=== PATIENT | female | born 1945 | race Caucasian/White ===

== ENCOUNTER → 2017-08-26 | Day surgery (SDC) | payer OTHER, MEDICAID ==
[~2017-08-26] MED LIST: IOPAMIDOL (ISOVUE-300) 100 ML BTL ONE
== END | disposition home or self-care (01) ==
LOC: FIMAGING 07:31
PROVIDERS: ATTEND Physician Assistant Medical
PROC: 02HV33Z Insertion of Infusion Device into Superior Vena Cava, Percutaneous Approach (ICD-10-PCS; principal; 2017-08-26)
PROC: B518YZA Fluoroscopy of Superior Vena Cava using Other Contrast, Guidance (ICD-10-PCS; principal; 2017-08-26)
DX: G35 Multiple sclerosis (principal)
CPT/HCPCS: 36569; 77001; C1751; Q9967

== ENCOUNTER 2017-09-09 14:03 | Inpatient (IN) | payer OTHER, MEDICAID ==
[2017-09-09] MEDS ORDERED: ONDANSETRON 4 MG/2 ML VIAL IVP PRN (18:19)
[2017-09-09] MEDS ORDERED: LORazepam 2 MG/ML INJ IVP PRN (18:19)
[2017-09-09] MEDS ORDERED: NS 1,000 ML IV SCH (18:30)
[2017-09-09] MEDS ORDERED: D50W 25 GM/50 ML SYR IVP PRN (18:31)
[2017-09-09] MEDS ORDERED: HYDROmorphONE/DILAUDID 2 MG/ML INJ IVP PRN (18:33)
[2017-09-09] MEDS ORDERED: ALBUTEROL 3 ML DEYVIAL IH PRN (18:36)
[2017-09-09] MEDS ORDERED: ALBUTEROL 60 PUFFS/8 GM MDI IH PRN (18:36)
[2017-09-09] MEDS ORDERED: DIAZEPAM 5 MG/ML 1 ML SYR IVP PRN (18:37)
[2017-09-09] MEDS ORDERED: ALTEPLASE 2 MG VIAL IVP PRN (18:37)
--- NOTE | 2017-09-09 18:57 | GHP ---
[f rep st] HISTORY AND PHYSICAL DATE OF ADMISSION: 09/09/2017 HISTORY OF PRESENT ILLNESS: The patient is a pleasant 72-year-old female with a history of multiple sclerosis and a remote breast cancer, as well as sleep apnea, who presents to [facility] today with increasing symptoms of a multiple sclerosis flare. These typically include difficulty with speaking and difficulty swallowing, as well as generalized weakness. She states these are similar to her previous flare. She has had no fever, chills. No cough. No sputum, although she is having a difficult time handling her secretions. She has not had nausea, vomiting, or diarrhea. She has had no fever. At her baseline, she ambulates in her apartment with a walker, uses a scooter chair out in public. She works at the [employer]. When I speak with her, she has a difficult time speaking, but she is alert and coherent, cogent, and pleasant. She denies a lot of the symptoms I have already discussed. She is notably intolerant of MRIs in that she becomes markedly hypertensive. Apparently, she said she had blood pressures of 240 over the high 100s. I have discussed the case with Dr. Ash Sun. REVIEW OF SYSTEMS: Complete 10-point Review of Systems conducted, negative except as in the HPI. PAST MEDICAL HISTORY: Arthritis, breast cancer, cervical cancer, type 2 diabetes, reflux, history of hysterectomy, history of pancreatitis, depression. ALLERGIES: Codeine, hydrocodone, meperidine, methocarbamol, penicillins. HOME MEDICATIONS: Albuterol, amlodipine, Asmanex, atorvastatin, cholestyramine , clotrimazole, diclofenac gel, glipizide, ketoconazole, lactulose, lidocaine, meloxicam, mirabegron, montelukast, , omeprazole, ondansetron, oxybutynin, oxycodone, sumatriptan, theophylline, topiramate, tramadol, triamterene/ hydrochlorothiazide. SOCIAL HISTORY: No tobacco, no alcohol. Lives with a roommate in [place]. FAMILY HISTORY: Reviewed and unremarkable. PHYSICAL EXAMINATION: VITAL SIGNS: Temp 36.7, blood pressure 152/95, pulse 92 , breathing 16 times a minute, 95% on 2 L. GENERAL: No acute distress. HEENT : Sclerae anicteric. Oropharynx clear. Mucous membranes moist. NECK: Supple. No lymphadenopathy or JVD. LUNGS: Clear to auscultation bilaterally. HEART: S1, S2. ABDOMEN: Soft, nontender, nondistended. LOWER EXTREMITIES: Without edema. Calves nontender. NEUROLOGIC: Exam reveals patient is struggling to control her own secretions. Has had this stammering but coherent speech and has generalized weakness. She has a cough as well. LABS: From an outside hospital: Sodium 143, potassium 3, chloride 106, bicarb 22, BUN 28, creatinine 140, glucose 95. CBC: White count 11, hematocrit 36, platelets are 311,000. Her hematocrit is at her baseline. Chest x-ray from outside hospital is reviewed and is unremarkable. I discussed the case with Dr. Ash Sun. ASSESSMENT/PLAN: A 72-year-old female with multiple sclerosis flare, dysphagia. 1. Multiple sclerosis flare. We will give her a gram of Solu-Medrol today. We will hold on magnetic resonance imaging. 2. Dysphagia. She needs a speech evaluation done and we will make her nothing by mouth until then. We will give her some intravenous fluids. 3. Pain. The patient takes chronic pain medicine. She is nothing by mouth. I have written for a little bit of intravenous Dilaudid. 4. Diabetes. We will hold her orals and we will put her on the lispro sliding scale and follow her reaction to the pulse steroids. 5. Prophylaxis. Pharmacologic prophylaxis indicated. I have started her enoxaparin. DISPOSITION: Inpatient status. /[id number]/MODL MTDD
[2017-09-09] MEDS: methylPREDNISolone SOD SUCC 1 GM in D5W 100 ML IV SCH (20:05)
[2017-09-09] MEDS: KETOROLAC 15 MG/1 ML SDV IVP SCH (22:17)
[2017-09-09] MEDS: DICLOFENAC SODIUM 1% 100 GM GEL TP SCH (22:18)
[2017-09-10] MEDS: KETOROLAC 15 MG/1 ML SDV IVP SCH ×4 (04:32→23:21)
[2017-09-10] MEDS: DICLOFENAC SODIUM 1% 100 GM GEL TP SCH ×5 (04:45→21:01)
--- NOTE | 2017-09-10 08:29 | NEUROPROG ---
Assessment: Patient seen this morning. She is a long-time multiple sclerosis patient of our practice. I agree with the plan for daily IV Solu-Medrol. We can make determinations on discharge planning over the next several days has swallowing is assessed and safety determined. Hopefully she will be able to get her next infusion of Ocrevus as an outpatient next Wednesday. Objective: Vital Signs Temp Pulse Resp BP Pulse Ox 36.4 C 84 18 143/79 H 96 09/10/17 08:00 09/10/17 08:00 09/10/17 08:00 09/10/17 08:00 09/10/17 08:00 Laboratory Results 09/10/17 04:47 09/09/17 09/10/17 09/11/17 05:59 05:59 05:59 Intake Total 1003 Output Total 500 Balance 503 Allergies/Adverse Reactions: codeine Allergy (Verified 09/09/17 18:08) Hives hydrocodone [From Vicodin] Allergy (Verified 09/09/17 18:09) unarousable meperidine [From Demerol] Allergy (Verified 09/09/17 18:07) lethargy, stupor methocarbamol [From Robaxin] Allergy (Verified 09/09/17 18:10) Itching, Hives Penicillins Allergy (Verified 09/09/17 18:07) Swelling/neck,face,throat Sulfa (Sulfonamide Antibiotics) Allergy (Verified 09/09/17 18:10) Hives, swelling leratine Allergy (Uncoded 09/09/17 18:08)
[2017-09-10] MEDS ORDERED: ENOXAPARIN 40 MG/0.4 ML SYR SC SCH (09:00)
[2017-09-10] MEDS: INSULIN LISPRO 100 UNIT/ML SC SCH ×3 (09:08→18:14)
[2017-09-10] MEDS ORDERED: LIDOCAINE 1% 300 MG/30 ML SDV ONE (12:24)
--- NOTE | 2017-09-10 13:01 | HOSPPROG ---
Hospitalist Progress Note Assessment/Plan: 72y female with c/o weakness. First encounter, chart reviewed. #MS flare -cont IV steroids -needs PICC -appreciate neurology consult #Dysphagia -see notes -some improvement #Pain -better today #DM -cont support -SSI #KEITH -follow labs #Dispo -unclear -needs cont hospital care -iv steroids -dysphagia workup Subjective: Up in wheelchair. Feels well. No specific issues. Objective: Vital Signs Temp Pulse Resp BP Pulse Ox 36.5 C 83 16 141/87 H 96 09/10/17 12:00 09/10/17 12:00 09/10/17 12:00 09/10/17 12:00 09/10/17 12:00 Laboratory Results 09/10/17 04:47 09/09/17 09/10/17 09/11/17 05:59 05:59 05:59 Intake Total 1003 Output Total 500 Balance 503 - Physical Exam Constitutional: appears nourished, chronically ill appearing, obese Eyes: PERRL, anicteric sclera, EOMI Ears, Nose, Mouth, Throat: moist mucous membranes, hearing normal, ears appear normal Cardiovascular: regular rate and rhythym, No JVD, No bradycardia Respiratory: no respiratory distress, no rales or rhonchi, reduced air movement Gastrointestinal: normoactive bowel sounds, No tenderness, No ascites Skin: warm, normal color, No mottled Musculoskeletal: no joint effusions, pain with ROM, generalized weakness Neurologic: AAOx3, weakness Psychiatric: interacting appropriately, not anxious, not encephalopathic, thought process linear ICD10 Worksheet Patient Problems: Problems Problem Status Onset Multiple sclerosis Acute
--- NOTE | 2017-09-10 13:24 | PDRADPN ---
Radiology Procedure Note Date of Procedure: 09/10/17 Radiologist: Raymond Pearson Anesthesia: Local (Specify) Pre-op Diagnosis: abx access Post-op Diagnosis: same Indication: long term care pharmacist venous access Procedure: left UE PICC Finding(s): tip of LUE PICC at cavoatrial junction Inf/Abcess present in the surg proc area at time of surgery?: No EBL: Minimal Complications: none
[2017-09-10] MEDS: methylPREDNISolone SOD SUCC 1 GM in D5W 100 ML IV SCH (14:20)
--- NOTE | 2017-09-10 14:54 | ASMTCMCOM ---
CM Note CM Note Notes: Patient admitted for an MS flare. She is a long time patient of [facility]. They recommend a three day course of IV Solu Medrol with ongoing assessment of home safety and dysphagia. Patient lives with a roommate and works at the [employer]. She has a caregiver for 6 hrs/day. Currently, PT/OT recommend Inpatient Rehab, so an order has been placed. They will likely not be able to evaluate until Wednesday 09/13. Case Management will follow and assist with discharge needs. Date Signed: 09/10/2017 02:53 PM Electronically Signed By:Becca Loza RN
--- NOTE | 2017-09-10 15:22 | ASMTCMCOM ---
CM Note CM Note Notes: Spoke with patient about discharge planning. She says that when she has MS flares, she sometimes discharges home and sometimes to a SNF. She has gone to [facility] in the past. She feels that it's too soon to tell what she will need and would like to revisit the conversation in a few days. Her MDPOA is Asia Bray [phone], and she would like us to notify her when a discharge plan is made. Date Signed: 09/10/2017 03:21 PM Electronically Signed By:Becca Loza RN
--- NOTE | 2017-09-10 16:06 | PDMN ---
Medical Necessity Medical necessity: Pt meets IP criteria per MD; est los >2 mn for eval/tx of MS flare w/difficulty speaking/swallowing & generalized weakness; admit for further monitoring, IV Solu-Medrol, IVFs & therapies; hx diabetes, pancreatitis & breast cancer; per H&P & order 09/09/17
[2017-09-10] MEDS: hydrALAZINE 20 MG/ML VIAL IVP PRN (21:02)
[2017-09-10] MEDS: ENOXAPARIN 40 MG/0.4 ML SYR SC SCH (21:02)
[2017-09-10] MEDS ORDERED: LORazepam 0.5 MG TAB PO PRN (23:35)
[2017-09-10] MEDS ORDERED: THEOPHYLLINE ER/SR 300 MG TAB (THEO-DUR) PO SCH (23:45)
[2017-09-11] MEDS: MELATONIN 3 MG TAB PO PRN ×2 (00:01→20:08)
[2017-09-11] MEDS: BACLOFEN 10 MG TAB PO PRN (00:01)
[2017-09-11] MEDS: DICLOFENAC SODIUM 1% 100 GM GEL TP SCH ×4 (05:33→20:03)
[2017-09-11] MEDS: KETOROLAC 15 MG/1 ML SDV IVP SCH ×4 (05:33→23:07)
[2017-09-11] MEDS: hydrALAZINE 20 MG/ML VIAL IVP PRN (07:37)
[2017-09-11] MEDS: INSULIN LISPRO 100 UNIT/ML SC SCH ×3 (07:37→18:08)
[2017-09-11] MEDS: THEOPHYLLINE ORAL SOLUTION 80 MG/15 ML UDCUP TUBE SCH ×3 (07:39→18:08)
--- NOTE | 2017-09-11 08:50 | HOSPPROG ---
Hospitalist Progress Note Assessment/Plan: 72y female with c/o weakness and speech difficulties 2/2 MS exacerbation MS flare cont IV steroids, day 3 has picc appreciate neurology consult Dysphagia see notes now eating Pain better today DM: blood sugars ok on pulse steroids KEITH: cr at baseline proph: lmwh dispo: inpt rehab consult placed Subjective: case d/w neurology . speech improved from admit Objective: Vital Signs Temp Pulse Resp BP Pulse Ox 36.9 C 94 18 167/96 H 96 09/11/17 07:18 09/11/17 07:18 09/11/17 07:18 09/11/17 07:37 09/11/17 07:18 Laboratory Results 09/11/17 05:41 09/10/17 09/11/17 09/12/17 05:59 05:59 05:59 Intake Total 1003 640 Output Total 500 950 Balance 503 -310 - Physical Exam Constitutional: no apparent distress, appears nourished Eyes: PERRL, anicteric sclera Ears, Nose, Mouth, Throat: moist mucous membranes, hearing normal Cardiovascular: regular rate and rhythym, no murmur, rub, or gallop Respiratory: no respiratory distress, no rales or rhonchi Gastrointestinal: normoactive bowel sounds, soft, non-tender abdomen Genitourinary: no bladder fullness, No knight in urethra Skin: warm, normal color Musculoskeletal: No full muscle strength Neurologic: AAOx3, other (voice still slow and halting but improved from 09/09 afternoon) Psychiatric: interacting appropriately ICD10 Worksheet Patient Problems: Problems Problem Status Onset Multiple sclerosis Acute
[2017-09-11] MEDS: methylPREDNISolone SOD SUCC 1 GM in D5W 100 ML IV SCH (09:23)
[2017-09-11] MEDS: ENOXAPARIN 40 MG/0.4 ML SYR SC SCH ×2 (09:23→20:04)
[2017-09-11] MEDS: metFORMIN HCL 500 MG TAB PO SCH (10:45)
[2017-09-11] MEDS ORDERED: NON-FORMULARY NEW DRUG (Sumatriptan Succinate [Imitrex] 100 MG) PO PRN (10:49)
[2017-09-11] MEDS ORDERED: SUMAtriptan 50 MG TAB PO PRN (10:59)
[2017-09-11] MEDS: traMADol 50 MG TAB PO PRN (11:16)
[2017-09-11] MEDS: DULoxetine 60 MG CAP PO SCH (18:07)
[2017-09-11] MEDS: ASPARTAME PO SCH (20:05)
[2017-09-11] MEDS: CHOLESTYRAMINE PO SCH (20:05)
[2017-09-11] MEDS: TEMAZEPAM 15 MG CAP PO PRN (20:08)
[2017-09-12] MEDS: KETOROLAC 15 MG/1 ML SDV IVP SCH ×3 (04:48→17:08)
[2017-09-12] MEDS: DICLOFENAC SODIUM 1% 100 GM GEL TP SCH ×4 (04:51→20:40)
[2017-09-12] MEDS: metFORMIN HCL 500 MG TAB PO SCH (08:04)
[2017-09-12] MEDS: ENOXAPARIN 40 MG/0.4 ML SYR SC SCH ×2 (08:04→20:37)
[2017-09-12] MEDS: INSULIN LISPRO 100 UNIT/ML SC SCH ×3 (08:05→17:08)
[2017-09-12] MEDS: THEOPHYLLINE ORAL SOLUTION 80 MG/15 ML UDCUP TUBE SCH ×3 (08:05→17:08)
[2017-09-12] MEDS: DULoxetine 60 MG CAP PO SCH (08:05)
[2017-09-12] MEDS: traMADol 50 MG TAB PO PRN ×2 (08:05→20:37)
[2017-09-12] MEDS: CHOLESTYRAMINE PO SCH ×2 (08:06→19:17)
[2017-09-12] MEDS: ASPARTAME PO SCH ×2 (08:06→19:17)
[2017-09-12] MEDS: methylPREDNISolone SOD SUCC 1 GM in D5W 100 ML IV SCH (09:32)
--- NOTE | 2017-09-12 10:00 | HOSPPROG ---
Hospitalist Progress Note Assessment/Plan: 72y female with c/o weakness and speech difficulties 2/2 MS exacerbation MS flare cont IV steroids, day 4/ has picc appreciate neurology consult Dysphagia see notes now eating Pain better today DM: blood sugars ok on pulse steroids KEITH: cr at baseline proph: lmwh dispo: inpt rehab consult placed she is wishing to go home given rapid improvement- we will see AM 09/13 Subjective: voice continues to improve Objective: Vital Signs Temp Pulse Resp BP Pulse Ox 36.8 C 87 18 113/94 H 93 09/12/17 07:26 09/12/17 07:26 09/12/17 07:26 09/12/17 07:26 09/12/17 07:26 Laboratory Results 09/11/17 05:41 09/11/17 09/12/17 09/13/17 05:59 05:59 05:59 Intake Total 640 900 Output Total 950 800 Balance -310 100 - Physical Exam Constitutional: no apparent distress, appears nourished Eyes: PERRL, anicteric sclera Ears, Nose, Mouth, Throat: moist mucous membranes, hearing normal Cardiovascular: regular rate and rhythym, no murmur, rub, or gallop Respiratory: no respiratory distress, no rales or rhonchi Gastrointestinal: normoactive bowel sounds, soft, non-tender abdomen Genitourinary: no bladder fullness, No knight in urethra Skin: warm, normal color Musculoskeletal: full muscle strength Neurologic: AAOx3 ICD10 Worksheet Patient Problems: Problems Problem Status Onset Multiple sclerosis Acute
--- NOTE | 2017-09-12 10:49 | NEUROPROG ---
Assessment: Patient seen this morning. She is a long-time multiple sclerosis patient of our practice. I agree with the plan for daily IV Solu-Medrol. We can make determinations on discharge planning over the next several days has swallowing is assessed and safety determined. Hopefully she will be able to get her next infusion of Ocrevus as an outpatient next Wednesday. 09/12/17 Today's total unit time of 15 min. The patient had multiple sclerosis exacerbation and is doing significantly better after 4 days out of 5 of IV steroids. After tomorrow she should be able to be discharged home and continue outpatient follow-up with me as usual and continue eventual return to her treatment with the Ocrevus. Call for any questions Subjective: The patient reports feeling significantly better and is able to swallow now. She has completed 4/5 days of steroids. Objective: Vital Signs Temp Pulse Resp BP Pulse Ox 36.8 C 87 18 113/94 H 93 09/12/17 07:26 09/12/17 07:26 09/12/17 07:26 09/12/17 07:26 09/12/17 07:26 Laboratory Results 09/11/17 05:41 09/11/17 09/12/17 09/13/17 05:59 05:59 05:59 Intake Total 640 900 Output Total 950 800 Balance -310 100 Her speech is better and she generally looks better from a subjective standpoint with no other changes in her neurologic exam. Allergies/Adverse Reactions: codeine Allergy (Verified 09/09/17 18:08) Hives hydrocodone [From Vicodin] Allergy (Verified 09/09/17 18:09) unarousable meperidine [From Demerol] Allergy (Verified 09/09/17 18:07) lethargy, stupor methocarbamol [From Robaxin] Allergy (Verified 09/09/17 18:10) Itching, Hives Penicillins Allergy (Verified 09/09/17 18:07) Swelling/neck,face,throat Sulfa (Sulfonamide Antibiotics) Allergy (Verified 09/09/17 18:10) Hives, swelling leratine Allergy (Uncoded 09/09/17 18:08)
--- NOTE | 2017-09-12 16:30 | ASMTCMCOM ---
CM Note CM Note Notes: Spoke with MD & RN. Anticipate dc home tomorrow with [facility]. Alerted Carlie, at [facility]. CM will need to fax dc paperwork to Carlie at time of dc (# in previous note). Also updated pt's cousin Annie ([phone]). CM will need to arrange Medicaid [facility] stretcher for pt at time of dc & coordinate with Carlie on making sure Caregivers are available to meet pt once she is home. CM will follow. Date Signed: 09/12/2017 04:29 PM Electronically Signed By:Kim Soriano RN
--- NOTE | 2017-09-12 16:54 | ASMTCMCOM ---
CM Note CM Note Notes: Disregard previous CM note (09/12/17 8269). Charted on wrong pt. Date Signed: 09/12/2017 04:54 PM Electronically Signed By:Kim Soriano RN
--- NOTE | 2017-09-12 17:27 | ASMTCMCOM ---
CM Note CM Note Notes: Spoke with MD; anticipate dc home tomorrow. Met with pt; informed pt is current with [facility] for PT/OT/RN services. CM to contact [facility] Wednesday. Pt states she will have a ride home at time of dc. CM to follow. Date Signed: 09/12/2017 05:26 PM Electronically Signed By:Kim Soriano RN
[2017-09-12] MEDS: TEMAZEPAM 15 MG CAP PO PRN (20:37)
[2017-09-12] MEDS: MELATONIN 3 MG TAB PO PRN (20:37)
[2017-09-13] MEDS: KETOROLAC 15 MG/1 ML SDV IVP SCH ×2 (00:08→05:30)
[2017-09-13] MEDS: traMADol 50 MG TAB PO PRN (02:53)
[2017-09-13] MEDS: DICLOFENAC SODIUM 1% 100 GM GEL TP SCH (05:32)
[2017-09-13] MEDS: THEOPHYLLINE ORAL SOLUTION 80 MG/15 ML UDCUP TUBE SCH (08:01)
[2017-09-13] MEDS: DULoxetine 60 MG CAP PO SCH (08:04)
[2017-09-13] MEDS: metFORMIN HCL 500 MG TAB PO SCH (08:06)
[2017-09-13] MEDS: INSULIN LISPRO 100 UNIT/ML SC SCH (08:10)
[2017-09-13] MEDS: CHOLESTYRAMINE PO SCH (08:11)
[2017-09-13] MEDS: ENOXAPARIN 40 MG/0.4 ML SYR SC SCH (08:11)
[2017-09-13] MEDS: ASPARTAME PO SCH (08:11)
[2017-09-13] MEDS: BACLOFEN 10 MG TAB PO PRN (08:16)
--- NOTE | 2017-09-13 08:45 | HOSPPROG ---
Hospitalist Progress Note Assessment/Plan: 72y female with c/o weakness and speech difficulties 2/2 MS exacerbation MS flare cont IV steroids, day 09/30 has picc appreciate neurology consult Dysphagia see notes now eating Pain better today DM: blood sugars ok on pulse steroids KEITH: cr at baseline proph: lmwh dispo: home today w home care > 30 minutes on dc Subjective: considerably better and ready for dc Objective: Vital Signs Temp Pulse Resp BP Pulse Ox 36.6 C 91 16 124/89 H 95 09/12/17 22:07 09/12/17 22:07 09/12/17 22:07 09/12/17 22:07 09/12/17 22:07 Laboratory Results 09/11/17 05:41 09/12/17 09/13/17 09/14/17 05:59 05:59 05:59 Intake Total 900 400 Output Total 800 500 Balance 100 -100 - Physical Exam Constitutional: no apparent distress, appears nourished Eyes: PERRL, anicteric sclera Ears, Nose, Mouth, Throat: moist mucous membranes, hearing normal Cardiovascular: regular rate and rhythym, no murmur, rub, or gallop Respiratory: no respiratory distress, no rales or rhonchi Gastrointestinal: normoactive bowel sounds, soft, non-tender abdomen Genitourinary: no bladder fullness, No knight in urethra Skin: warm, normal color Musculoskeletal: full muscle strength Neurologic: AAOx3 ICD10 Worksheet Patient Problems: Problems Problem Status Onset Multiple sclerosis Acute
--- NOTE | 2017-09-13 08:47 | PDIAF ---
- Diagnosis Diagnosis: MS exacerbation Code Status: Full Code - Medication Management Discharge Medications: Medications to Continue on Transfer Albuterol [Proventil Inhaler HFA (*)] 1 - 2 puffs IH Q4H PRN 09/09/17 [Last Taken Unknown] Albuterol [Proventil Neb] 3 ml IH Q4 PRN 09/09/17 [Last Taken Unknown] Aspirin [Aspirin 81mg (*)] 81 mg PO DAILY 09/09/17 [Last Taken Unknown] Atorvastatin Calcium [Lipitor 20 mg (*)] 20 mg PO DAILY 09/09/17 [Last Taken Unknown] Baclofen [Baclofen 10 mg (*)] 10 mg PO TID 09/09/17 [Last Taken Unknown] Diclofenac Sodium 1% [Voltaren Gel (*)] 1 artemio TP QID 09/09/17 [Last Taken Unknown] Duloxetine HCl [Cymbalta] 60 mg PO DAILY 09/09/17 [Last Taken Unknown] Glycopyrrolate 1 mg PO DAILY 09/09/17 [Last Taken Unknown] Linaclotide [Linzess] 72 mcg PO DAILY 09/09/17 [Last Taken Unknown] Meloxicam 15 mg PO DAILY 09/09/17 [Last Taken Unknown] Mometasone 220Mcg Inhaler [Asmanex Inh (*)] 1 puffs IH TID 09/09/17 [Last Taken Unknown] Montelukast Sodium [Singulair 10 mg (*)] 10 mg PO DAILY 09/09/17 [Last Taken Unknown] Omeprazole 40 mg PO DAILY 09/09/17 [Last Taken Unknown] Theophylline ER/Sr [Sohail-Dur 300 MG (*)] 300 mg PO BID 09/09/17 [Last Taken Unknown] Triamterene/Hctz 37.5/25 [Dyazide 37.5/25 (*)] 1 each PO DAILY 09/09/17 [Last Taken Unknown] traMADol [Ultram 50 mg (*)] 50 - 100 mg PO Q4 PRN 09/09/17 [Last Taken Unknown] Cholestyramine/Aspartame [Prevalite Packet] 4 gm PO BID 09/10/17 [Last Taken Unknown] Clindamycin 600 mg PO ONCE PRN 09/10/17 [Last Taken Unknown] Melatonin [Melatonin 3 MG (*)] 6 mg PO HS 09/10/17 [Last Taken Unknown] Mirabegron [Myrbetriq] 50 mg PO DAILY 09/10/17 [Last Taken Unknown] Ondansetron Odt [Zofran Odt 4 mg (*)] 4 mg PO DAILY 09/10/17 [Last Taken Unknown ] Promethazine HCl [Phenadoz] 25 mg RC HS 09/10/17 [Last Taken Unknown] SUMAtriptan [Imitrex Sc Injection] 6 mg SQ ONCE PRN 09/10/17 [Last Taken Unknown ] Sumatriptan Succinate [Imitrex] 100 mg PO ONCE PRN 09/10/17 [Last Taken Unknown] metFORMIN HCL [Glucophage 500 mg (*)] 1,000 mg PO DAILY 09/10/17 [Last Taken Unknown] Discharge Medications: Refer to the Discharge Home Medication list for PRN reason. - Orders Services needed: Home Care, Physical Therapy, Occupational Therapy Home Care Face to Face: I certify that this patient was under my care and that I had the required [id number] encounter meeting the encounter requirements on the discharge day. My findings support the fact that the patient is homebound as defined in Home Care Face to Face Continued: [facility] Chapter 7 Medicare Benefits Manual 30.1.1 , The condition of the patient is such that there exists a normal inability to leave home and consequently, leaving home would require a considerable and taxing effort. Diet Texture: Dysphagia 2 - Mechanically Altered - Chopped, Ground, Thin Liquids , Meds Crushed in Puree - Follow Up Care Current Providers and Referrals: Patient,NotPresent [Primary Care Provider] -
[2017-09-13 08:59] VITALS: BP 143/77
[2017-09-13] MEDS: methylPREDNISolone SOD SUCC 1 GM in D5W 100 ML IV SCH (09:09)
--- NOTE | 2017-09-13 09:31 | GDS ---
[f rep st] DISCHARGE SUMMARY DISCHARGE DIAGNOSES: 1. Multiple sclerosis exacerbation. 2. Diabetes. 3. Dysphagia, now resolved. 4. History of breast cancer. 5. Type 2 diabetes. 6. History of hysterectomy. Please see admission history and physical. The patient presented with a multiple sclerosis flare, ch aracterized by dysphagia and generalized weakness. The patient received pulse steroids, Solu-Medrol a gram a day. She was seen by a neurologist, Dr. Sun. She had rather remarkable improvement o nasrin the 5 days. Physical Therapy was initially recommending inpatient rehab, but she was transitione d to being appropriate for home with home care, with which the patient concurs. She is discharged home. Medications unchanged. /[id number]/MODL
--- NOTE | 2017-09-13 10:01 | ASMTCMCOM ---
CM Note CM Note Notes: Dc order received. Spoke with MD & RN. Spoke with Monica ([phone]) at [facility]; dc paperwork faxed; confirmed received. Pt updated. Confirmed pt has a ride home. No other needs at this time. Date Signed: 09/13/2017 10:00 AM Electronically Signed By:Kim Soriano RN
--- NOTE | 2017-09-13 10:02 | ASDISCHSUM ---
Discharge Information Plan Status:Home with Home Health Medically Cleared to Leave:09/13/2017 Discharge Date:09/13/2017 CM D/C Disposition:Home Health Service ADT D/C Disposition: Projected Discharge Date:09/13/2017 11:00 AM Transportation at D/C:Family Discharge Delay Reason: Follow-Up Date:09/13/2017 11:00 AM Discharge Slot: Final Diagnosis: Placement Information Referral Type:*Home Health Care Services Referral ID:[id number] Provider Name:[facility] Address 1:[address] Address 2: City:[place] Selection Factors: State:[place] Patient Contact Information Contact Name:LIGIA Relationship:Sister Address: Work Phone: City: [place] [facility] Phone: [facility] Code: Email: Financial Information Financial Class:Medicare Primary Plan Desc:MEDICARE INPATIENT Primary Plan Number:[id number] Secondary Plan Desc:[place] Secondary Plan Number:[id number] Assessment Information [facility] CM Progress Note CM Note CM Note Notes: Patient admitted for an MS flare. She is a long time patient of [facility]. They recommend a three day course of IV Solu Medrol with ongoing assessment of home safety and dysphagia. Patient lives with a roommate and works at the [employer]. She has a caregiver for 6 hrs/day. Currently, PT/OT recommend Inpatient Rehab, so an order has been placed. They will likely not be able to evaluate until Wednesday 09/13. Case Management will follow and assist with discharge needs. Date Signed: 09/10/2017 02:53 PM Electronically Signed By:Becca Loza RN [facility] CM Progress Note CM Note CM Note Notes: Spoke with patient about discharge planning. She says that when she has MS flares, she sometimes discharges home and sometimes to a SNF. She has gone to [facility] in the past. She feels that it's too soon to tell what she will need and would like to revisit the conversation in a few days. Her MDPOA is Asia Bray [phone], and she would like us to notify her when a discharge plan is made. Date Signed: 09/10/2017 03:21 PM Electronically Signed By:Becca Loza RN [facility] Progress Note CM Note CM Note Notes: Spoke with MD & RN. Anticipate dc home tomorrow with [facility]. Alerted Carlie, at [facility]. CM will need to fax dc paperwork to Carlie at time of dc (# in previous note). Also updated pt's cousin Annie ([phone]). CM will need to arrange Medicaid [facility] stretcher for pt at time of dc & coordinate with Carlie on making sure Caregivers are available to meet pt once she is home. CM will follow. Date Signed: 09/12/2017 04:29 PM Electronically Signed By:Kim Soriano RN [facility] Progress Note CM Note CM Note Notes: Disregard previous CM note (09/12/17 9114). Charted on wrong pt. Date Signed: 09/12/2017 04:54 PM Electronically Signed By:Kim Soriano RN [facility] Progress Note CM Note CM Note Notes: Spoke with MD; anticipate dc home tomorrow. Met with pt; informed pt is current with [facility] for PT/OT/RN services. CM to contact [facility] Wednesday. Pt states she will have a ride home at time of dc. CM to follow. Date Signed: 09/12/2017 05:26 PM Electronically Signed By:Kim Soriano RN [facility] CM Progress Note CM Note CM Note Notes: Dc order received. Spoke with & RN. Spoke with Monica ([phone]) at [facility]; dc paperwork faxed; confirmed received. Pt updated. Confirmed pt has a ride home. No other needs at this time. Date Signed: 09/13/2017 10:00 AM Electronically Signed By:Kim Soriano RN Intervention Information
--- NOTE | 2017-09-16 09:38 | PQFORM ---
PHYSICIAN QUERY FORM Needs Your Response This query form is being sent to you to assure this patient record is coded properly. Please respond to the question below: IP/MOSAIC TECHNICIAN QUESTION: Dr Soriano The medical record documents a BUN= 30 ; a CR of 1.4 risk factors of DM2 and Dysphagia along with treatment of IV NS,. AKF was mentioned in the Progress Notes but was not documented in the Discharge Summary. Did the this patient have __X_ Acute Kidney Failure ___ Chronic Kidney Disease ___ Other (Please Specify ) ___ Unable to Determine Thank You Brigida JORDAN Senior Business Intelligence Analyst INSTRUCTIONS FOR RESPONSE: Answer question by clicking on the "Edit Document" button. Move cursor to area below the stars. When complete, hit "Save." Click on the "Sign" button, then click "Sign" again. Type in your PIN and hit "Enter." MTDD
== END 2017-09-13 10:44 | disposition home or self-care (01) | DRG 59 ==
LOC: F3E 16:43 → OBSVTOIN 16:43
PROVIDERS: ADMIT Internal Medicine; ATTEND Internal Medicine
PROC: 02HV33Z Insertion of Infusion Device into Superior Vena Cava, Percutaneous Approach (ICD-10-PCS; principal; 2017-09-10)
DX: G35 Multiple sclerosis (principal); N17.9 Acute kidney failure, unspecified; E11.9 Type 2 diabetes mellitus without complications; R13.10 Dysphagia, unspecified; G47.30 Sleep apnea, unspecified; Z85.41 Personal history of malignant neoplasm of cervix uteri; Z85.3 Personal history of malignant neoplasm of breast
CPT/HCPCS: 92526-GN; 92610-GN; 97110-GP; 97116-GP; 97162-GP; 97166-GO; 97530-GP; 97535-GO; C1751; G8978-GP-CK; G8979-GP-CJ; G8987-GO-CK; G8988-GO-CI; G8989-GO-CI; G8996-GN-CK; G8997-GN-CH; J0360; J1650; J1815; J1885; J2930

== ENCOUNTER 2018-03-16 11:23 | Outpatient (CLI) | payer OTHER, MEDICAID ==
[2018-03-16 12:19] LABS: PLATELET COUNT 262 10^3/uL (150-400)
[2018-03-16] MEDS ORDERED: PROPOFOL/EMULSION 500 MG/50 ML BOTTLE IV ONE (13:39)
[2018-03-16] MEDS ORDERED: fentaNYL 100 MCG/2 ML INJ ONE (13:39)
[2018-03-16] MEDS ORDERED: MIDAZOLAM 2 MG/2 ML VIAL ONE (13:39)
[2018-03-16] MEDS ORDERED: PROPOFOL 200 MG/20 ML VIAL ONE (13:39)
[2018-03-16] MEDS ORDERED: GADOBUTROL 10 ML VIAL IVP ONE (14:07)
--- NOTE | 2018-03-16 14:08 | PDANEPAE ---
ANE History of Present Illness Brain MRI looking for new MS lesions due to new deficits ANE Past Medical History - Cardiovascular History Hx Hypertension: No Hx Arrhythmias: No Hx Chest Pain: No Hx Coronary Artery / Peripheral Vascular Disease: No Hx CHF / Valvular Disease: No Hx Palpitations: No - Pulmonary History Hx COPD: No Hx Asthma/Reactive Airway Disease: No Hx Recent Upper Respiratory Infection: Yes Hx Oxygen in Use at Home: Yes Hx Sleep Apnea: Yes Sleep Apnea Screening Result - Last Documented: Positive Pulmonary History Comment: Hx asthma. O2 @ night -daytime only if levels drop - Neurologic History Hx Cerebrovascular Accident: No Hx Seizures: No Hx Dementia: No Neurologic History Comment: TIA x2 (06/2017 & 10/2017) - Endocrine History Hx Diabetes: Yes - Renal History Hx Renal Disorders: No - Liver History Hx Hepatic Disorders: No - Neurological & Psychiatric Hx Hx Neurological and Psychiatric Disorders: Yes Neurological / Psychiatric History Comment: MS - Cancer History Hx Cancer: Yes Cancer History Comment: uterine CA -1990. breast CA x2 (2-3 yrs ago) - Congenital Disorder History Hx Congenital Disorders: Yes Congenital History Comment: MS - GI History GERD: mild Hx Gastrointestinal Disorders: Yes Gastrointestinal History Comment: GERD - Other Health History Other Health History: cataracts removed 2016 - Chronic Pain History Chronic Pain: Yes - Surgical History Prior Surgeries: MYKEL, left knee, appy, vikram ANE Review of Systems Review of Systems: - Exercise capacity METS (RN): 1 METS ANE Patient History - Allergies Allergies/Adverse Reactions: codeine Allergy (Verified 09/09/17 18:08) Hives hydrocodone [From Vicodin] Allergy (Verified 09/09/17 18:09) unarousable meperidine [From Demerol] Allergy (Verified 09/09/17 18:07) lethargy, stupor methocarbamol [From Robaxin] Allergy (Verified 09/09/17 18:10) Itching, Hives Penicillins Allergy (Verified 09/09/17 18:07) Swelling/neck,face,throat Sulfa (Sulfonamide Antibiotics) Allergy (Verified 09/09/17 18:10) Hives, swelling leratine Allergy (Uncoded 09/09/17 18:08) - Home Medications Home Medications: Albuterol [Proventil Inhaler HFA (*)] 1 - 2 puffs IH Q4H PRN 09/09/17 [Last Taken Unknown] Albuterol [Proventil Neb] 3 ml IH Q4 PRN 09/09/17 [Last Taken Unknown] Aspirin [Aspirin 81mg (*)] 81 mg PO DAILY 09/09/17 [Last Taken 03/16/18] Atorvastatin Calcium [Lipitor 20 mg (*)] 20 mg PO DAILY 09/09/17 [Last Taken ] Baclofen [Baclofen 10 mg (*)] 10 mg PO TID 09/09/17 [Last Taken 03/16/18] Diclofenac Sodium 1% [Voltaren Gel (*)] 1 artemio TP QID 09/09/17 [Last Taken ] Duloxetine HCl [Cymbalta] 60 mg PO DAILY 09/09/17 [Last Taken 03/16/18] Glycopyrrolate 1 mg PO DAILY 09/09/17 [Last Taken 03/16/18] Linaclotide [Linzess] 72 mcg PO DAILY 09/09/17 [Last Taken 03/16/18] Meloxicam 15 mg PO DAILY 09/09/17 [Last Taken 03/16/18 07:30] Mometasone 220Mcg Inhaler [Asmanex Inh (*)] 1 puffs IH TID 09/09/17 [Last Taken 03/16/18 07:30] Montelukast Sodium [Singulair 10 mg (*)] 10 mg PO DAILY 09/09/17 [Last Taken 07:30] Omeprazole 40 mg PO DAILY 09/09/17 [Last Taken 03/16/18 07:30] Theophylline ER/Sr [Sohail-Dur 300 MG (*)] 300 mg PO BID 09/09/17 [Last Taken 07:30] Triamterene/Hctz 37.5/25 [Dyazide 37.5/25 (*)] 1 each PO DAILY 09/09/17 [Last Taken 03/16/18 07:30] traMADol [Ultram 50 mg (*)] 50 - 100 mg PO Q4 PRN 09/09/17 [Last Taken 03/16/18 07:30 100 mg] Cholestyramine/Aspartame [Prevalite Packet] 4 gm PO BID 09/10/17 [Last Taken ] Melatonin [Melatonin 3 MG (*)] 6 mg PO HS 09/10/17 [Last Taken 03/15/18 21:00] Mirabegron [Myrbetriq] 50 mg PO DAILY 09/10/17 [Last Taken 03/16/18 07:30] Ondansetron Odt [Zofran Odt 4 mg (*)] 4 mg PO DAILY 09/10/17 [Last Taken ] Promethazine HCl [Phenadoz] 25 mg RC HS 09/10/17 [Last Taken 03/16/18 07:30] SUMAtriptan [Imitrex Sc Injection] 6 mg SQ ONCE PRN 09/10/17 [Last Taken ] Sumatriptan Succinate [Imitrex] 100 mg PO ONCE PRN 09/10/17 [Last Taken 03/10/18 ] - Smoking Hx Smoking Status: Former smoker ANE Labs/Vital Signs - Labs Result Diagrams: 03/16/18 12:13 03/16/18 12:13 - Vital Signs Blood Pressure: 129/68 Heart Rate: 82 Respiratory Rate: 16 O2 Sat (%): 96 Height: 162.56 cm Weight: 114.305 kg ANE Physical Exam - Airway Neck exam: short neck Mallampati Score: Class 3 Mouth exam: normal dental/mouth exam - Pulmonary Pulmonary: no respiratory distress - Cardiovascular Cardiovascular: regular rate and rhythym - ASA Status ASA Status: III ANE Anesthesia Plan Anesthesia Plan: GA w LMA
[2018-03-16] MEDS ORDERED: ALBUTEROL 3 ML DEYVIAL IH PRN (15:30)
[2018-03-16] MEDS ORDERED: ONDANSETRON 4 MG/2 ML VIAL IVP PRN (15:30)
[2018-03-16] MEDS ORDERED: HYDROCODONE/APAP 5/325 TAB PO PRN (15:30)
[2018-03-16] MEDS ORDERED: NALOXONE HCL 0.4 MG/ML INJ IVP PRN (15:30)
[2018-03-16] MEDS ORDERED: MEPERIDINE 25 MG/0.5 ML AMP IVP PRN (15:30)
--- NOTE | 2018-03-16 15:30 | POSTANESTH ---
Post Anesthetic Evaluation Cardiovascular Status: Normal, Stable, Similar to Pre-Op Cond Respiratory Status: Normal, Stable Level of Consciousness/Mental Status: Can Participate in Eval, Alert and Oriented Pain Control: Adequate, Prn Tx Ordered Nausea/Vomiting Control: Adequate, Prn Tx Ordered
[2018-03-16 15:51] VITALS: BP 150/81
== END 2018-03-16 16:05 | disposition home or self-care (01) ==
LOC: FIMAGING 11:23
PROVIDERS: ATTEND Psychiatry & Neurology Neurology
DX: G35 Multiple sclerosis (principal); R47.81 Slurred speech; H53.9 Unspecified visual disturbance
CPT/HCPCS: 70553; A9585; J2250; J2704; J3010